=== PATIENT | male | born 1950 | race Caucasian/White ===

== ENCOUNTER 2016-12-30 09:13 | Emergency (ER) | payer MEDICARE ==
[2016-12-30] MEDS ORDERED: SODIUM CHLORIDE 0.9% 1,000 ML IV STA (09:55)
[2016-12-30] MEDS ORDERED: hydrALAZINE HCL 20 MG/ML 1 ML VIAL IVP STA (09:55)
[2016-12-30 10:43] LABS: Basophils % (A) 1 %; CH 31.7; CHCM 35.7; Eosinophils # (A) 0.1 k/uL (0-0.7); Eosinophils % (A) 2 %; HCT 48.6 % (39.0-53.0); HDW 2.76; HGB 16.8 gm/dL (13.0-17.5); Luc # (Auto) 0.06; Luc % (Auto) 2; Lymphocytes # (A) 0.7 k/uL (1.0-4.8); Lymphocytes % (A) 17 %; MCH 30.8 pg (25.0-35.0); MCHC 34.5 g/dL (31.0-37.0); MCV 89.3 fL (80.0-100.0); Mean Platelet Volume 7.6; Monocytes # (A) 0.3 k/uL (0-1.0); Monocytes % (A) 8 %; Neutrophils # (A) 2.7 k/uL (1.3-7.7); Neutrophils % (A) 70 %; RBC 5.44 m/uL (4.30-5.90); RDW 14.5 % (11.5-15.5); WBC 3.9 k/uL (3.8-10.6); WBC (Perox) 3.61
[2016-12-30 10:52] LABS: ALT 44 U/L (21-72); AST 37 U/L (17-59); Alkaline Phosphatase 76 U/L (38-126); Anion Gap 7 mmol/L; Blood Urea Nitrogen 21 mg/dL (9-20); Calcium 9.3 mg/dL (8.4-10.2); Carbon Dioxide 26 mmol/L (22-30); Chloride 105 mmol/L (98-107); Glucose 88 mg/dL (74-99); Non-African American GFR(MDRD) >60 (>60 ml/min/1.73 sqM); Potassium 4.7 mmol/L (3.5-5.1); Sodium 138 mmol/L (137-145); Total Protein 7.2 g/dL (6.3-8.2)
--- NOTE | 2016-12-30 11:06 | CT ---
EXAMINATION TYPE: CT brain wo con DATE OF EXAM: 12/30/2016 HISTORY: headache, sharp pain in both ears, htn CT DLP: 1067 mGycm. Automated Exposure Control for Dose Reduction was Utilized. TECHNIQUE: CT scan of the head is performed without contrast. COMPARISON: CT scan of brain February 19, 2015. MRI brain March 10, 2015 FINDINGS: There is no acute intracranial hemorrhage or midline shift identified. There is diffuse v entricular and sulcal prominence consistent with diffuse age-related cerebral atrophy. There is low- attenuation in the periventricular white matter consistent with chronic small vessel ischemic change. The globes are intact and the visualized sinuses are clear. IMPRESSION: No acute intracranial hemorrhage or midline shift. There is mild to minimal diffuse age -related cerebral atrophy and chronic small vessel ischemic change redemonstrated without significant change from prior studies.
[2016-12-30 12:02] VITALS: TEMP 97
--- NOTE | 2016-12-30 12:45 | ED ---
General Adult HPI - General Chief complaint: Recheck/Abnormal Lab/Rx Stated complaint: HYPERTENSION, SENT BY [facility] Time Seen by Provider: 12/30/16 09:39 Source: patient, RN notes reviewed Mode of arrival: ambulatory Limitations: no limitations - History of Present Illness Initial comments: Patient is 66-year-old male who presents emergency room today with chief complaint of a headache. He does admit that he's had some sensitivity over the both left and right posterior aspects of the scalp. He states this started 45 days ago. He states at times he gets a "sharp" type pain. He states he did go to urgent care because he could not get into his family doctor and advised him come here to the emergency room. He states he does not have headaches. He states blood pressure was elevated at the urgent care. He states he did take his blood pressure medicine prior to coming here to the emergency room after leaving urgent care. Patient denies any other concerns associated symptoms. Patient denies any recent fever, chills, shortness of breath, chest pain, back pain, abdominal pain, nausea or vomiting, numbness or tingling, dysuria or hematuria, constipation or diarrhea, visual changes, or any other complaints. - Related Data Home Medications Medication Instructions Recorded Confirmed Benazepril HCl [Lotensin] 20 mg PO DAILY 07/23/15 12/30/16 amLODIPine [Norvasc] 5 mg PO DAILY 07/23/15 12/30/16 Bisoprolol-Hctz 5-6.25 mg [Ziac 1 tab PO DAILY 12/30/16 12/30/16 5-6.25] Allergies Allergy/AdvReac Type Severity Reaction Status Date / Time No Known Allergies Allergy Verified 12/30/16 09:30 Review of Systems ROS Statement: Those systems with pertinent positive or pertinent negative responses have been documented in the HPI. ROS Other: All systems not noted in ROS Statement are negative. Past Medical History Past Medical History: Hyperlipidemia, Hypertension Additional Past Medical History / Comment(s): wart in "Private area", hemorrhoids History of Any Multi-Drug Resistant Organisms: None Reported Past Surgical History: Orthopedic Surgery, Tonsillectomy Additional Past Surgical History / Comment(s): carpal tunnel-alhaji Past Anesthesia/Blood Transfusion Reactions: No Reported Reaction Past Psychological History: No Psychological Hx Reported Smoking Status: Former smoker Past Alcohol Use History: Occasional Past Drug Use History: None Reported - Past Family History Mother Family Medical History: Cancer Additional Family Medical History / Comment(s): lung cancer Father Family Medical History: Coronary Artery Disease (CAD) Additional Family Medical History / Comment(s): heart catheterization with stents Daughter(s) Additional Family Medical History / Comment(s): carpal tunnel General Exam - General Exam Comments Initial Comments: General: The patient is awake and alert, in no distress, and does not appear acutely ill. Eye: Pupils are equal, round and reactive to light, extra-ocular movements are intact. No nystagmus. There is normal conjunctiva bilaterally. No signs of icterus. Ears, nose, mouth and throat: There are moist mucous membranes and no oral lesions. Neck: The neck is supple, there is no tenderness or JVD. Cardiovascular: There is a regular rate and rhythm. No murmur, rub or gallop is appreciated. Respiratory: Lungs are clear to auscultation, respirations are non-labored, breath sounds are equal. No wheezes, stridor, rales, or rhonchi. Gastrointestinal: Soft, non-distended, non-tender abdomen without masses or organomegaly noted. There is no rebound or guarding present. No CVA tenderness. Bowel sounds are unremarkable. Musculoskeletal: Normal ROM, no tenderness. Strength 5/5. Sensation intact. Pulses equal bilaterally 2+. Neurological: A&O x 3. CN II-XII intact, There are no obvious motor or sensory deficits. Coordination appears grossly intact. Speech is normal. Skin: Skin is warm and dry and no rashes or lesions are noted. Psychiatric: Cooperative, appropriate mood & affect, normal judgment. Limitations: no limitations Course Vital Signs 12/30/16 12/30/16 12/30/16 09:15 10:34 11:58 Temperature 96.9 F L Pulse Rate 50 L 40 L 48 L Respiratory 18 18 18 Rate Blood Pressure 210/93 156/72 149/72 O2 Sat by Pulse 100 97 96 Oximetry 12/30/16 12:00 Temperature 97.0 F L Pulse Rate 41 L Respiratory 16 Rate Blood Pressure 152/75 O2 Sat by Pulse 98 Oximetry Medical Decision Making - Medical Decision Making Case discussed in detail with attending physician . Patient updated of the results. Negative CAT scan. Patient's labs been reviewed are unremarkable. Negative sed rate. Patient has no tenderness over the temporal area. No sign of rash. Was discussed about possibility of early shingles. Advised to return for rash. Advised return if any symptoms increase worsen. At this time blood pressure improved not needed to give any medications here in the emergency room. Patient is feeling better. Advised follow family doctor over the next 1-2 days. - Lab Data Result diagrams: 12/30/16 10:12 12/30/16 10:12 Lab Results 12/30/16 12/30/16 12/30/16 Range/Units 10:12 10:12 10:12 WBC 3.9 (3.8-10.6) k/uL RBC 5.44 (4.30-5.90) m/uL Hgb 16.8 (13.0-17.5) gm/dL Hct 48.6 (39.0-53.0) % MCV 89.3 (80.0-100.0) fL MCH 30.8 (25.0-35.0) pg MCHC 34.5 (31.0-37.0) g/dL RDW 14.5 (11.5-15.5) % Plt Count 216 (150-450) k/uL Neutrophils % 70 % Lymphocytes % 17 % Monocytes % 8 % Eosinophils % 2 % Basophils % 1 % Neutrophils # 2.7 (1.3-7.7) k/uL Lymphocytes # 0.7 L (1.0-4.8) k/uL Monocytes # 0.3 (0-1.0) k/uL Eosinophils # 0.1 (0-0.7) k/uL Basophils # 0.0 (0-0.2) k/uL ESR 2 (0-15) mm/hr Sodium 138 (137-145) mmol/L Potassium 4.7 (3.5-5.1) mmol/L Chloride 105 (98-107) mmol/L Carbon Dioxide 26 (22-30) mmol/L Anion Gap 7 mmol/L BUN 21 H (9-20) mg/dL Creatinine 0.87 (0.66-1.25) mg/dL Est GFR (MDRD) Af Amer >60 (>60 ml/min/1.73 sqM) Est GFR (MDRD) Non-Af >60 (>60 ml/min/1.73 sqM) Glucose 88 (74-99) mg/dL Calcium 9.3 (8.4-10.2) mg/dL Total Bilirubin 1.0 (0.2-1.3) mg/dL AST 37 (17-59) U/L ALT 44 (21-72) U/L Alkaline Phosphatase 76 (38-126) U/L Total Protein 7.2 (6.3-8.2) g/dL Albumin 4.2 (3.5-5.0) g/dL Disposition Clinical Impression: Acute headache, Hypertension Disposition: HOME SELF-CARE Condition: Good Instructions: Acute Headache (ED) Additional Instructions: Please follow-up with family doctor in the next 2 days. Please return to emergency room if the symptoms increase or worsen or for any other concerns. Referrals: Estuardo Ba MD [Primary Care Provider] - 1-2 days Time of Disposition: 12:44
[2016-12-30 12:46] VITALS: BP 168/78; PULSE 44; RESP 18
== END 2016-12-30 13:08 | disposition home or self-care (01) ==
LOC: EC 09:13
DX: I10 Essential (primary) hypertension (principal); R51 Headache; Z87.891 Personal history of nicotine dependence; Z79.899 Other long term (current) drug therapy; Z82.49 Family history of ischemic heart disease and other diseases of the circulatory system
CPT/HCPCS: 36415; 70450; 80053; 85025; 85652; 93005; 96360; 96361; 99284

== ENCOUNTER → 2018-03-27 | Outpatient (CLI) | payer MEDICARE ==
--- NOTE | 2018-03-27 09:49 | FL ---
ESOPHOGRAM. HISTORY: Dysphagia Esophagram was performed per the air contrast technique. The patient swallowed barium and effervesce nt crystals without difficulty or delay. Esophageal peristalsis and motility appear to be within normal limits. There is no evidence for filling defect, mass or diverticulum. No hiatal hernia seen. Subsequently single contrast cervical esophagram was performed which fails demonstrate evidence for a spiration penetration or mass. IMPRESSION: Unremarkable study.
== END ==
LOC: RADFLWHC 08:45
PROVIDERS: ATTEND Otolaryngology
DX: R13.10 Dysphagia, unspecified (principal)
CPT/HCPCS: 74220

== ENCOUNTER → 2018-12-06 | Outpatient (CLI) | payer MEDICARE ==
--- NOTE | 2018-12-06 17:47 | US ---
EXAMINATION TYPE: US carotid duplex BILAT DATE OF EXAM: 12/06/2018 COMPARISON: 02/20/2015 CLINICAL HISTORY: R51 HEADACHE. Left sided headaches EXAM MEASUREMENTS: RIGHT: Peak Systolic Velocity (PSV) cm/sec ----- Right CCA: 82.0 ----- Right ICA: 81.7 ----- Right ECA: 82.5 ICA/CCA ratio: 1.0 RIGHT: End Diastole cm/sec ----- Right CCA: 20.4 ----- Right ICA: 30.2 ----- Right ECA: 9.2 LEFT: Peak Systolic Velocity (PSV) cm/sec ----- Left CCA: 80.1 ----- Left ICA: 90.8 ----- Left ECA: 87.5 ICA/CCA ratio: 1.1 LEFT: End Diastole cm/sec ----- Left CCA: 16.7 ----- Left ICA: 31.4 ----- Left ECA: 9.5 VERTEBRALS (direction of flow): Right Vertebral: Antegrade Left Vertebral: Antegrade Rhythm: Normal Mild plaque bilateral bifurcations. No evidence of significant stenosis IMPRESSION: There is antegrade flow in the vertebral arteries. The images and measurements suggest 25% stenosis i n both internal carotid arteries. No significant change compared to old exam. Criteria for Assigning % of Stenosis / Diameter reduction (Estimation based on the indirect measurements of the internal carotid artery velocities (ICA PSV). 1. Normal (no stenosis)=ICA PSV < 125 cm/s: ratio < 2.0: ICA EDV<40 cm/s. 2. Less than 50% stenosis=ICA PSV < 125 cm/s: ratio < 2.0: ICA EDV<40 cm/s. 3. 50 to 69% stenosis=ICA PSV of 125 to 230 cm/s: ration 2.0 ? 4.0: ICA EDV 40-100 cm/s. 4. Greater than 70% stenosis to near occlusion= ICA PSV > 230 cm/s: ratio > 4.0: ICA EDV > 100 cm/s. 5. Near occlusion= ICA PSV velocities may be low or undetectable: variable ratio and ICA EDV. 6. Total occlusion=unable to detect flow.
== END | disposition home or self-care (01) ==
LOC: RADUSWWP 16:46
PROVIDERS: ATTEND Family Medicine
DX: R51 Headache (principal)
CPT/HCPCS: 93880

== ENCOUNTER → 2020-04-14 | Outpatient (CLI) | payer MEDICARE | END | disposition home or self-care (01) | LOC: LABWHC1 11:13 | PROVIDERS: ATTEND Family Medicine | DX: J32.9 Chronic sinusitis, unspecified (principal); Z20.828 Contact with and (suspected) exposure to other viral communicable diseases | CPT/HCPCS: U0003; C9803 ==

== ENCOUNTER 2021-08-05 08:58 | Day surgery (SDC) | payer MEDICARE ==
[2021-08-03 11:28] VITALS: BMI 28.5
[2021-08-05] MEDS ORDERED: LACTATED RINGERS 1,000 ML IV SCH (09:35)
[2021-08-05] MEDS ORDERED: LIDOCAINE 1% (10MG/ML) FOR IV START INTRADERMA PRN (09:35)
[2021-08-05 09:44] VITALS: TEMP 97.1
[2021-08-05] MEDS ORDERED: PROPOFOL 10 MG/ML 20 ML VIAL IV ONE (10:30)
[2021-08-05] MEDS ORDERED: GLYCOPYRROLATE 0.2 MG/ML 2 ML VIAL ONE (10:30)
[2021-08-05] MEDS ORDERED: LIDOCAINE 1% INJ 10MG/ML (20 ML MDV) ONE (10:30)
--- NOTE | 2021-08-05 10:47 | P.PCN ---
Date of Procedure: 08/05/21 Procedure(s) Performed: BRIEF HISTORY: Patient is a 71-year-old pleasant white male scheduled for an elective colonoscopy as a part of evaluation of prior history of colon polyps. Last coloscopy was 5 years ago. PROCEDURE PERFORMED: Colonoscopy snare polypectomy. PREOPERATIVE DIAGNOSIS: History of colon polyps. IV sedation per Anesthesia. PROCEDURE: After informed consent was obtained, the patient, was brought into the endoscopy unit. IV sedation was administered by Anesthesia under continuous monitoring. Digital rectal examination was normal. Initially the Olympus CF-160 flexible video colonoscope was then inserted in the rectum, gradually advanced into the cecum without any difficulty. Careful examination was performed as the scope was gradually being withdrawn. Ileocecal valve and the appendiceal orifice were visualized and appeared normal. Prep was excellent. Mucosa of the cecum, a ppeared normal. Ascending colon there was a 1 cm polyp that was snare polypectomy. In the proximal transverse colon there was a 7 mm polyp removed by snare polypectomy. Rest of the ascending colon, transverse colon, descending colon, sigmoid colon, and rectum appeared normal. Sigmoid: There was a 3 mm polyp removed by snare polypectomy. Retroflexion was performed in the rectum and no lesions were seen. The patient tolerated the procedure well. IMPRESSION: 1 cm ascending colon polyp status post polypectomy 7 mm transverse colon polyp status post polypectomy 3 mm Millimeters; sigmoid polyp status post snare polypectomy RECOMMENDATIONS: Findings of this examination were discussed with the patient as her family. She was advised to follow with the biopsy results. If the biopsy results adenoma he can have a repeat colonoscopy in 3 years.
[2021-08-05 11:08] VITALS: BP 119/66; PULSE 61; RESP 16
== END 2021-08-05 11:33 | disposition home or self-care (01) ==
LOC: ORWHC2ENDO 08:58
PROVIDERS: ATTEND Internal Medicine Gastroenterology
DX: Z12.11 Encounter for screening for malignant neoplasm of colon (principal); D12.1 Benign neoplasm of appendix; D12.5 Benign neoplasm of sigmoid colon; D12.3 Benign neoplasm of transverse colon; Z79.890 Hormone replacement therapy; Z79.899 Other long term (current) drug therapy; I10 Essential (primary) hypertension; E78.5 Hyperlipidemia, unspecified; E07.9 Disorder of thyroid, unspecified; R35.1 Nocturia; Z79.82 Long term (current) use of aspirin
CPT/HCPCS: 88305; 45385; J2001; J2704